=== PATIENT | female | born 1940 | race Caucasian/White ===

== ENCOUNTER → 2017-05-05 | Outpatient (CLI) | payer MEDICARE | END | disposition home or self-care (01) | LOC: SHCH 14:29 | PROVIDERS: ATTEND Internal Medicine Cardiovascular Disease | DX: I20.9 Angina pectoris, unspecified (principal) | CPT/HCPCS: 93306 ==

== ENCOUNTER → 2018-05-31 | Outpatient (CLI) | payer MEDICARE | END | disposition home or self-care (01) | LOC: RAH 13:36 | PROVIDERS: ATTEND Internal Medicine | DX: R22.31 Localized swelling, mass and lump, right upper limb (principal); R05 Cough | CPT/HCPCS: 76882 ==

== ENCOUNTER → 2019-03-13 | Outpatient (CLI) | payer MEDICARE | END | disposition home or self-care (01) | LOC: RAH 11:25 | PROVIDERS: ATTEND Internal Medicine | DX: R09.89 Other specified symptoms and signs involving the circulatory and respiratory systems (principal) | CPT/HCPCS: 93880 ==

== ENCOUNTER → 2021-09-11 | Outpatient (CLI) | payer MEDICARE | END | disposition home or self-care (01) | LOC: SHCH 13:24 | PROVIDERS: ATTEND Internal Medicine Cardiovascular Disease | DX: I34.0 Nonrheumatic mitral (valve) insufficiency (principal); R01.1 Cardiac murmur, unspecified; I10 Essential (primary) hypertension; R06.00 Dyspnea, unspecified; E78.5 Hyperlipidemia, unspecified | CPT/HCPCS: 93306 ==

== ENCOUNTER → 2023-05-20 | Outpatient (CLI) | payer MEDICARE, OTHER | END | disposition home or self-care (01) | LOC: RAH 16:07 | PROVIDERS: ATTEND Nurse Practitioner Family | DX: M47.817 Spondylosis without myelopathy or radiculopathy, lumbosacral region (principal); M41.87 Other forms of scoliosis, lumbosacral region; M54.31 Sciatica, right side; M25.551 Pain in right hip | CPT/HCPCS: 72100; 73502 ==

== ENCOUNTER → 2024-01-11 | Outpatient (CLI) | payer MEDICARE, OTHER | END | disposition home or self-care (01) | LOC: SHCH 09:02 | PROVIDERS: ATTEND Internal Medicine Cardiovascular Disease | DX: I25.10 Atherosclerotic heart disease of native coronary artery without angina pectoris (principal) | CPT/HCPCS: 93306 ==

== ENCOUNTER → 2024-02-13 | Outpatient (CLI) | payer OTHER ==
--- NOTE | 2024-02-13 15:04 | HMCIMG ---
CT HEART SAVER PROMOTIONAL HISTORY: Calcium scoring COMPARISON: None TECHNIQUE: Computed tomography of the heart was performed with ECG gating and suspended respiration. Postprocessing was performed on a computer workstation to obtain diastolic phase images, determine calcium score and provide a quantitative assessment of extent of disease. This CT included only the heart. HeartSaver score is 152.9. Please see cardiac calcium score report. The available CT chest images show no acute finding. CT was performed with one or more following dose reduction techniques: automated exposure control, adjustment of the mA and kv according to patient's size, or use of a iterative reconstruction technique.
== END | disposition home or self-care (01) ==
LOC: RAH 13:13
PROVIDERS: ATTEND Internal Medicine Cardiovascular Disease
DX: Z13.6 Encounter for screening for cardiovascular disorders (principal)
CPT/HCPCS: 75571

== ENCOUNTER → 2024-08-31 | Outpatient (CLI) | payer MEDICARE, OTHER ==
--- NOTE | 2024-09-01 01:57 | HMCIMG ---
EXAM: CT examination of the Brain without contrast. CLINICAL HISTORY: Headache. TECHNIQUE: Thin collimated axial CT images of the brain were obtained with sagittal and coronal reformatted images also submitted. CT scan done according to ALARA (As Low as Reasonably Achievable). CONTRAST USED: None. COMPARISON: None. FINDINGS: No acute intracranial abnormality is present. Mild generalized brain atrophy with prominent ventricles and sulci. Mild chronic small vessel ischemic disease. No acute cortical infarction, hemorrhage, mass or mass effect. No abnormal extra-axial fluid collections. The posterior fossa is unremarkable. Moderate atherosclerotic calcifications in the bilateral vertebral arteries and C4 segments of bilateral internal carotid arteries. The skull base and calvarium are intact. The included portions of the paranasal sinuses and mastoid air cells are clear. IMPRESSION: No acute intracranial abnormality is present. Mild generalized brain atrophy. Mild chronic small vessel ischemic disease. /[place]
--- NOTE | 2024-09-01 10:08 | HMCIMG ---
US CAROTID DUPLEX REASON: Occlusion and stenosis of bilateral carotid arteries. TECHNIQUE: Exam was performed using spectral analysis and color flow imaging. FINDINGS: Color flow Doppler ultrasound shows normal-appearing bifurcations. There is no anatomic evidence of significant focal narrowing. There is nonhemodynamically calcified plaques in both carotid artery at the bifurcation more pronounced on the left as compared to the right. Flow velocities and velocity ratios appear normal throughout. There is antegrade flow in both vertebral arteries. RIGHT CAROTID: CCA: 103 cm/sec ICA: 65 cm/sec Ratio: ICA/CCA: 0.6 ECA: 111 cm/sec Vertebral artery: 43 cm/sec LEFT CAROTID: CCA: 95 cm/sec ICA: 132 cm/sec Ratio: ICA/CCA: 1.4 ECA: 57 cm/sec Vertebral artery: 78 cm/sec IMPRESSION: Calcified plaques in both carotid artery distally with no evidence of stenosis.
== END | disposition home or self-care (01) ==
LOC: RAH 15:04
PROVIDERS: ATTEND Internal Medicine
DX: I67.82 Cerebral ischemia (principal); I67.2 Cerebral atherosclerosis; G31.89 Other specified degenerative diseases of nervous system; R68.89 Other general symptoms and signs
CPT/HCPCS: 70450; 93880